=== PATIENT | male | born 1990 | race Caucasian/White ===

== ENCOUNTER 2022-06-28 13:34 | Outpatient (REF) | payer BC, SELFPAY ==
[2022-06-28 17:46] LABS: MANUAL DIFF FLAG NO
[2022-06-28 17:57] LABS: Estimated Average Glucose 100 mg/dL; Hemoglobin A1c % 5.1 %
[2022-06-28 18:17] LABS: Alanine Aminotransferase 18 U/L (0-40); Albumin Level 4.4 g/dL (3.5-5.0); Alkaline Phosphatase 37 U/L (39-117); Anion Gap 14 (12-20); Aspartate Amino Transferase 17 U/L (5-37); Basophils Percent Auto 0.4 % (0-2); Bilirubin Total 0.3 mg/dL (0.0-1.0); Blood Urea Nitrogen 19 mg/dL (9-16); C Reactive Protein 0.05 mg/dL (< or = 0.50); Calcium 9.7 mg/dL (8.4-10.2); Carbon Dioxide 28 mmol/L (22-29); Chloride 102 mmol/L (96-108); Eosinophils Absolute Auto 0.3 X10*3/uL (0.0-0.4); Eosinophils Percent Auto 3.6 % (0-4); Estimated Glomerular Filt Rate > 60; Glucose Random 90 mg/dL (60-115); Hematocrit 44.5 % (42.0-52.0); Hemoglobin 15.2 g/dl (14.0-18.0); Imm Gran Abs Auto 0.02 X10*3/uL (0.00-0.03); Imm Gran Pct Auto 0.3 % (0.0-0.4); Lymphocytes Absolute Auto 2.2 X10*3/uL (1.2-4.9); Lymphocytes Percent Auto 27.7 % (20-40); Mean Corpuscular HGB Conc 34.2 g/dl (31.0-36.0); Mean Corpuscular Hemoglobin 31.1 pg (27.0-33.0); Mean Platelet Volume 10.1 fL (9.4-12.4); Monocytes Absolute Auto 0.6 X10*3/uL (0.1-1.2); Monocytes Percent Auto 7.3 % (2-11); Neutrophils Absolute Auto 4.8 x10*3/uL (2.0-8.3); Neutrophils Percent Auto 60.7 % (45-73); Platelet Count 257 X10*3/uL (160-400); Potassium 4.2 mmol/L (3.3-5.1); Red Blood Count 4.89 X10*6/uL (4.60-5.80); Red Cell Distribution Width 13.1 % (11.0-16.0); Sodium 140 mmol/L (135-145); Total Protein 7.2 g/dL (6.5-8.0); White Blood Count 7.8 X10*3/uL (4.8-10.8)
[2022-06-28 18:37] LABS: Free T4 (Free Thyroxine) 0.92 ng/dL (0.71-1.85); Thyroid Stimulating Hormone 1.15 uIU/mL (0.32-4.0)
[2022-06-28 18:51] LABS: Folate 7.8 ng/mL (> or = 4.0); Vitamin B12 392 pg/mL (200-900)
[2022-06-28 19:09] LABS: Erythrocyte Sedimentation Rate 2 MM/HR (0-15)
[2022-06-28 19:17] LABS: Vitamin D 25-OH Total 28.3 ng/mL (>30)
[2022-07-01 05:12] LABS: Lyme Abs Screen <0.90 index
[2022-07-05 12:16] LABS: Testosterone, Free 100.9 pg/mL (35.0-155.0); Testosterone, Total 476 ng/dL (250-1100)
== END 2022-06-28 13:35 | disposition home or self-care (01) ==
LOC: HO.MANLDS 13:34
PROVIDERS: Visit Provider Physician Assistant
DX: R55 Syncope and collapse (principal); R53.83 Other fatigue
CPT/HCPCS: 36415; 80053; 82306; 82607; 82746; 83036; 84402; 84403; 84439; 84443; 85025; 85652; 86140; 86617; 86618

== ENCOUNTER 2023-07-12 13:31 | Outpatient (REF) | payer BC, SELFPAY | END 2023-07-12 13:32 | disposition home or self-care (01) | LOC: HO.MANLNP 13:31 | PROVIDERS: Visit Provider Physician Assistant | DX: T14.8XXA Other injury of unspecified body region, initial encounter (principal); W57.XXXA Bitten or stung by nonvenomous insect and other nonvenomous arthropods, initial encounter | CPT/HCPCS: 87070; 87077; 87186; 87205 ==

== ENCOUNTER 2023-12-20 16:10 | Outpatient (REF) | payer BC, SELFPAY | END 2023-12-20 16:11 | disposition home or self-care (01) | LOC: HO.MANLNP 16:10 | PROVIDERS: Visit Provider Physician Assistant | DX: R21 Rash and other nonspecific skin eruption (principal) | CPT/HCPCS: 87070; 87205 ==

== ENCOUNTER 2023-12-29 14:56 | Outpatient (REF) | payer BC, SELFPAY ==
[2023-12-29 17:41] LABS: MANUAL DIFF FLAG NO
[2023-12-29 17:52] LABS: Basophils Percent Auto 0.5 % (0-2); Eosinophils Absolute Auto 0.1 X10*3/uL (0.0-0.4); Eosinophils Percent Auto 2.2 % (0-4); Hematocrit 39.5 % (42.0-52.0); Hemoglobin 13.9 g/dl (14.0-18.0); Lymphocytes Absolute Auto 2.3 X10*3/uL (1.2-4.9); Mean Corpuscular HGB Conc 35.2 g/dl (31.0-36.0); Mean Corpuscular Hemoglobin 30.7 pg (27.0-33.0); Mean Corpuscular Volume 87.2 fL (80.0-98.0); Mean Platelet Volume 10.2 fL (9.4-12.4); Monocytes Absolute Auto 0.5 X10*3/uL (0.1-1.2); Monocytes Percent Auto 8.9 % (2-11); Neutrophils Absolute Auto 2.6 x10*3/uL (2.0-8.3); Neutrophils Percent Auto 47.4 % (45-73); Platelet Count 237 X10*3/uL (160-400); Red Blood Count 4.53 X10*6/uL (4.60-5.80); Red Cell Distribution Width 12.5 % (11.0-16.0); White Blood Count 5.5 X10*3/uL (4.8-10.8)
[2023-12-29 18:24] LABS: Erythrocyte Sedimentation Rate 2 MM/HR (0-15)
[2023-12-29 18:30] LABS: Estimated Average Glucose 108 mg/dL; Hemoglobin A1c % 5.4 % (<6.0)
[2023-12-29 18:32] LABS: Rheumatoid Factor < 13.0 IU/mL (<15.0)
[2023-12-29 18:34] LABS: Alanine Aminotransferase 17 U/L (0-40); Alkaline Phosphatase 34 U/L (39-117); Anion Gap 14 (12-20); Aspartate Amino Transferase 19 U/L (5-37); Bilirubin Total 0.4 mg/dL (0.0-1.0); Blood Urea Nitrogen 12 mg/dL (9-16); C Reactive Protein < 0.04 mg/dL (< or = 0.50); Calcium 8.4 mg/dL (8.4-10.2); Carbon Dioxide 25 mmol/L (22-29); Chloride 105 mmol/L (96-108); Estimated Glomerular Filt Rate > 60; Glucose Random 78 mg/dL (60-115); Potassium 3.7 mmol/L (3.3-5.1); Sodium 140 mmol/L (135-145); Total Protein 6.6 g/dL (6.5-8.0)
[2024-01-01 21:20] LABS: Anti DNA DS Antibody <1 IU/mL
[2024-01-02 15:23] LABS: Anti Nuclear Antibody Screen NEGATIVE (NEGATIVE); Cyclic Citrullinated Peptide <16 UNITS
== END 2023-12-29 14:57 | disposition home or self-care (01) ==
LOC: HO.MANLDS 14:56
PROVIDERS: Visit Provider Physician Assistant
DX: R21 Rash and other nonspecific skin eruption (principal)
CPT/HCPCS: 36415; 80053; 83036; 85025; 85652; 86038; 86140; 86200; 86225; 86431